=== PATIENT | female | born 1985 | race Caucasian/White ===

== ENCOUNTER 2017-06-03 14:58 | Outpatient (RCR) | payer OTHER | END 2017-06-06 | LOC: M PT 14:58 | PROVIDERS: ATTEND Physician Assistant Medical | DX: Z51.89 Encounter for other specified aftercare (principal); M54.9 Dorsalgia, unspecified ==

== ENCOUNTER 2017-06-10 11:04 | Outpatient (RCR) | payer OTHER | END 2017-07-07 | disposition home or self-care (01) | LOC: M PT 11:04 | PROVIDERS: ATTEND Physician Assistant Medical | DX: Z51.89 Encounter for other specified aftercare (principal); M54.9 Dorsalgia, unspecified ==